=== PATIENT | male | born 1950 | race Caucasian/White ===

== ENCOUNTER 2018-12-11 10:57 | Emergency (ER) | payer MEDICARE ==
[~2018-12-11] VITALS: Ht 190.5 cm; Wt 142.0 kg
[~2018-12-11 10:57] MED LIST: ASCO500 PO; ASPI81CH PO; ASPI81EC PO; Bactrim Ds Tab1 EACH PO; CHOL10002 PO; CLOP75 PO; DABI150C PO; DOCU100 PO; ETOD400 PO; FENO145 PO; FURO40 PO; Ferrous Sulfat325 M2 PO; GABA300 PO; GLIP10 PO; Hair, Skin & N1 EACH PO; INS70/30PN; INSDET100 SC; INSULANPEN; JARDIANCE25 MG; METF500 PO; METO50 PO; Micro-K10 MEQ PO; NAPR250 PO; OMEPRAZOLE MAGN20 MG PO; OXYC5 PO; POTCHL20ER PO; Roxicodone5 MG PO; SERT100 PO; SIMV80 PO; TAMS.4ER PO; TRAM50 PO
[2018-12-11] MEDS ORDERED: CYCL10 PO (11:21)
[2018-12-11] MEDS ORDERED: TRULICITY1.5 MG/0.5 SC (11:22)
[2018-12-11 11:23] LABS: Source, Urine Clean Catch
[2018-12-11] MEDS ORDERED: FISH OIL 1,001000 MG PO (11:23)
[2018-12-11 11:28] LABS: BASOPHILS ABSOLUTE AUTO 0.05 K/mm3 (0.00-0.23); BASOPHILS PERCENT AUTO 1 % (0-2); EOSINOPHILS ABSOLUTE AUTO 0.13 K/mm3 (0.00-0.68); EOSINOPHILS PERCENT AUTO 2 % (0-6); Hematocrit 36.5 % (37.0-53.0); IMMATURE GRAN ABSOLUTE AUTO 0.02 K/mm3 (0.00-0.10); IMMATURE GRAN PERCENT AUTO 0 % (0-1); LYMPHOCYTES ABSOLUTE AUTO 1.92 K/mm3 (0.84-5.20); LYMPHOCYTES PERCENT AUTO 25 % (21-46); MONOCYTES PERCENT AUTO 7 % (4-13); Mean Corpuscular HGB 31.8 pg (26.0-34.0); Mean Corpuscular HGB Conc 32.9 g/dL (31.5-36.5); Mean Corpuscular Volume 97 fL (80-100); NEUTROPHILS ABSOLUTE AUTO 5.06 K/mm3 (1.96-9.15); NEUTROPHILS PERCENT AUTO 66 % (41-73); Platelet Count 160 K/mm3 (150-400); RDW Coefficient Variation 13.2 % (11.7-14.2); RDW Standard Deviation 46.4 fL (35.1-46.3); Red Blood Cell Count 3.77 M/mm3 (4.30-5.90); White Blood Cell Count 7.68 K/mm3 (4.00-11.30)
[2018-12-11 11:31] LABS: Bilirubin, Urine Neg (Neg); Blood, Urine Neg (Neg); Glucose Qualitative, Urine Neg (Neg); Ketones, Urine Neg (Neg); Leukocyte Esterase, Urine Neg (Neg); Nitrite, Urine Neg (Neg); Protein, Urine 3+ (Neg); Specific Gravity, Urine 1.015 (1.003-1.022); Urobilinogen, Urine NORM (Normal)
[2018-12-11] MEDS ORDERED: HUMULIN R500 UNIT/1 SC ×3 (11:33→11:35)
[2018-12-11] MEDS ORDERED: LISI5 PO (11:38)
[2018-12-11 11:39] LABS: Appearance, Urine Clear (Clear); Bacteria Not Seen /hpf; Color, Urine Yellow (P-Yellow); Mucus Light (0-Heavy); Red Blood Cells, Urine Not Seen /hpf (0-2); Squamous Epithelial Cells Rare /hpf (Few); White Blood Cells, Urine Not Seen /hpf (0-5)
[2018-12-11] MEDS ORDERED: GABA300 PO ×2 (11:43→11:44)
[2018-12-11] MEDS ORDERED: OXYC5 PO (11:46)
[2018-12-11] MEDS ORDERED: ASCO500 PO (11:47)
[2018-12-11] MEDS ORDERED: Zantac150 MG PO (11:47)
[2018-12-11 11:48] LABS: Alanine Aminotransfer (ALT/SGP 52 U/L (12-78); Albumin, Blood 3.5 g/dL (3.4-5.0); Albumin/Globulin Ratio 0.9 (0.8-1.8); Alk Phos 68 U/L (50-136); Anion Gap 8 mmol/L (6-16); Aspartate Aminotrans (AST/SGOT 42 U/L (12-37); Bilirubin, Total 0.4 mg/dL (0.1-1.0); Blood Urea Nitrogen 23 mg/dL (8-24); Bun/Creatinine Ratio 27.1 (12.0-20.0); CO2, Blood 24 mmol/L (21-32); Calcium, Blood 8.6 mg/dL (8.5-10.1); Chloride, Blood 107 mmol/L (98-108); Creatinine, Blood 0.85 mg/dL (0.60-1.20); Globulin, Blood 3.8 g/dL (2.2-4.0); Glomerular Filtration Rate >60 (60-); Glucose, Blood 171 mg/dL (70-99); Potassium, Blood 3.9 mmol/L (3.5-5.5); Sodium, Blood 139 mmol/L (136-145); Total Protein, Blood 7.3 g/dL (6.4-8.2); Troponin I 0.062 ng/mL (0.000-0.040)
[2018-12-11] MEDS ORDERED: MAGOXI400 PO (14:40)
== END 2018-12-11 14:58 | disposition home or self-care (01) ==
LOC: ER 10:57
PROVIDERS: Emergency Medicine
DX: R55 Syncope and collapse (principal); E83.42 Hypomagnesemia; R79.89 Other specified abnormal findings of blood chemistry; Z79.899 Other long term (current) drug therapy; Z79.82 Long term (current) use of aspirin; Z79.4 Long term (current) use of insulin; E11.9 Type 2 diabetes mellitus without complications; I10 Essential (primary) hypertension; I25.2 Old myocardial infarction; Z86.73 Personal history of transient ischemic attack (TIA), and cerebral infarction without residual deficits
CPT/HCPCS: 71046; 80053; 81001; 83735; 84484; 85025; 93005; 93010

== ENCOUNTER 2019-06-23 19:04 | Observation (INO) | payer MEDICARE ==
[~2019-06-23] VITALS: Ht 190.5 cm; Wt 141.1 kg
[~2019-06-23 19:04] MED LIST changes: -ASPI81CH PO; +Aspirin EC81 MG PO; -CHOL10002 PO; +CYCL10 PO; +FISH OIL 1,001000 MG PO; +HUMULIN R500 UNIT/1 SC; +LISI5 PO; +MAGOXI400 PO; +Neurontin300 MG PO; +TRULICITY1.5 MG/0.5 SC; +VITAMIN D-32000 UNIT PO; +Zantac150 MG PO
[2019-06-23 19:45] LABS: BASOPHILS ABSOLUTE AUTO 0.05 K/mm3 (0.00-0.23); BASOPHILS PERCENT AUTO 1 % (0-2); EOSINOPHILS ABSOLUTE AUTO 0.13 K/mm3 (0.00-0.68); EOSINOPHILS PERCENT AUTO 2 % (0-6); Hematocrit 39.8 % (37.0-53.0); IMMATURE GRAN ABSOLUTE AUTO 0.03 K/mm3 (0.00-0.10); IMMATURE GRAN PERCENT AUTO 0 % (0-1); LYMPHOCYTES ABSOLUTE AUTO 2.74 K/mm3 (0.84-5.20); LYMPHOCYTES PERCENT AUTO 35 % (21-46); MONOCYTES ABSOLUTE AUTO 0.48 K/mm3 (0.16-1.47); MONOCYTES PERCENT AUTO 6 % (4-13); Mean Corpuscular HGB 31.5 pg (26.0-34.0); Mean Corpuscular HGB Conc 32.7 g/dL (31.5-36.5); Mean Corpuscular Volume 96 fL (80-100); NEUTROPHILS ABSOLUTE AUTO 4.46 K/mm3 (1.96-9.15); NEUTROPHILS PERCENT AUTO 57 % (41-73); Platelet Count 207 K/mm3 (150-400); RDW Coefficient Variation 12.7 % (11.7-14.2); RDW Standard Deviation 45.2 fL (35.1-46.3); Red Blood Cell Count 4.13 M/mm3 (4.30-5.90); White Blood Cell Count 7.89 K/mm3 (4.00-11.30)
[2019-06-23 20:01] LABS: Alanine Aminotransfer (ALT/SGP 34 U/L (12-78); Albumin, Blood 3.7 g/dL (3.4-5.0); Albumin/Globulin Ratio 0.8 (0.8-1.8); Alk Phos 85 U/L (50-136); Anion Gap 8 mmol/L (6-16); Aspartate Aminotrans (AST/SGOT 27 U/L (12-37); Bilirubin, Total 0.3 mg/dL (0.1-1.0); Blood Urea Nitrogen 23 mg/dL (8-24); Bun/Creatinine Ratio 18.5 (12.0-20.0); CO2, Blood 25 mmol/L (21-32); Chloride, Blood 107 mmol/L (98-108); Creatinine, Blood 1.24 mg/dL (0.60-1.20); Globulin, Blood 4.5 g/dL (2.2-4.0); Glomerular Filtration Rate >60 (60-); Glucose, Blood 150 mg/dL (70-99); Potassium, Blood 3.8 mmol/L (3.5-5.5); Sodium, Blood 140 mmol/L (136-145); Total Protein, Blood 8.2 g/dL (6.4-8.2); Troponin I 0.055 ng/mL (0.000-0.040)
[2019-06-23] MEDS ORDERED: Fish Oil Conc1000 MG PO (20:35)
[2019-06-23] MEDS ORDERED: METO25ER PO (20:35)
[2019-06-23] MEDS ORDERED: SERT100 PO (20:36)
[2019-06-23] MEDS ORDERED: POTCHL20ER PO (20:36)
[2019-06-24 04:43] LABS: BASOPHILS ABSOLUTE AUTO 0.05 K/mm3 (0.00-0.23); BASOPHILS PERCENT AUTO 0 % (0-2); EOSINOPHILS ABSOLUTE AUTO 0.16 K/mm3 (0.00-0.68); EOSINOPHILS PERCENT AUTO 1 % (0-6); Hematocrit 34.7 % (37.0-53.0); Hemoglobin 11.5 g/dL (13.5-17.5); IMMATURE GRAN ABSOLUTE AUTO 0.03 K/mm3 (0.00-0.10); IMMATURE GRAN PERCENT AUTO 0 % (0-1); LYMPHOCYTES ABSOLUTE AUTO 3.41 K/mm3 (0.84-5.20); LYMPHOCYTES PERCENT AUTO 30 % (21-46); MONOCYTES ABSOLUTE AUTO 0.68 K/mm3 (0.16-1.47); MONOCYTES PERCENT AUTO 6 % (4-13); Mean Corpuscular HGB 31.1 pg (26.0-34.0); Mean Corpuscular HGB Conc 33.1 g/dL (31.5-36.5); Mean Corpuscular Volume 94 fL (80-100); Mean Platelet Volume 9.8 fL (9.1-12.4); NEUTROPHILS ABSOLUTE AUTO 6.91 K/mm3 (1.96-9.15); NEUTROPHILS PERCENT AUTO 62 % (41-73); Platelet Count 188 K/mm3 (150-400); RDW Coefficient Variation 12.9 % (11.7-14.2); RDW Standard Deviation 44.2 fL (35.1-46.3); White Blood Cell Count 11.24 K/mm3 (4.00-11.30)
[2019-06-24 05:07] LABS: Calcium, Blood 8.6 mg/dL (8.5-10.1); Creatinine, Blood 1.53 mg/dL (0.60-1.20); Potassium, Blood 3.5 mmol/L (3.5-5.5); Troponin I 0.053 ng/mL (0.000-0.040)
--- NOTE | 2019-06-24 06:35 | NUR ---
SHIFT SUMMARY: Pt admitted to medical floor at 2155. A/O x 4. R ankle fx stabilized in splint. Cap refill 4sec to BLE. Able to wiggle toes. Ankle elevated on pillow after pt reporting RLE bandages feel tight. R ankle pain and L knee pain was managed upon admit but progressively worsened. One time dose of dilauded administered as ordered. Pt responded very well and fell asleep shortly after. CPAP on. Tele on. Call button explained and placed within reach. Communicating needs. Remained non-wt bearing all night. Call placed for ortho consult as directed by admitting physician.
--- NOTE | 2019-06-24 16:57 | NUR ---
SHIFT SUMMARY PT AXO, PLEASANT AND COOPERATIVE WITH CARE. DENIES CHEST PAIN THIS SHIFT. RUNNING A-FIB AT 75 PER DIE SETTER. PT DOES COMPLAIN OF RLE AND LEFT KNEE PAIN. MEDICATED PER EMAR. PT SLEEPING INTERMITTENTLY THROUGHOUT THE DAY. DR. JONES CONSULTED, REDUCED AND PLACED SPLINT, SEE NOTE. X-RAY ON RLE AND LEFT KNEE COMPLETED, SEE IMAGING. VSS. BED IN LOW POSITION, CALL LIGHT WITHIN REACH. PT'S INSULIN FROM HOME, U-500, VERIFIED FROM PHARMACY AND ORDERED AC PER DR PRICE AND PT'S HOME DOSAGES.
[2019-06-25 05:02] LABS: BASOPHILS ABSOLUTE AUTO 0.02 K/mm3 (0.00-0.23); BASOPHILS PERCENT AUTO 0 % (0-2); EOSINOPHILS ABSOLUTE AUTO 0.11 K/mm3 (0.00-0.68); EOSINOPHILS PERCENT AUTO 1 % (0-6); Hemoglobin 11.2 g/dL (13.5-17.5); IMMATURE GRAN ABSOLUTE AUTO 0.02 K/mm3 (0.00-0.10); IMMATURE GRAN PERCENT AUTO 0 % (0-1); LYMPHOCYTES ABSOLUTE AUTO 2.06 K/mm3 (0.84-5.20); LYMPHOCYTES PERCENT AUTO 26 % (21-46); MONOCYTES ABSOLUTE AUTO 0.64 K/mm3 (0.16-1.47); MONOCYTES PERCENT AUTO 8 % (4-13); Mean Corpuscular HGB 31.3 pg (26.0-34.0); Mean Corpuscular HGB Conc 32.9 g/dL (31.5-36.5); Mean Corpuscular Volume 95 fL (80-100); Mean Platelet Volume 10.1 fL (9.1-12.4); NEUTROPHILS ABSOLUTE AUTO 5.05 K/mm3 (1.96-9.15); NEUTROPHILS PERCENT AUTO 64 % (41-73); Platelet Count 166 K/mm3 (150-400); RDW Coefficient Variation 12.7 % (11.7-14.2); RDW Standard Deviation 43.7 fL (35.1-46.3); Red Blood Cell Count 3.58 M/mm3 (4.30-5.90)
[2019-06-25 05:42] LABS: Anion Gap 8 mmol/L (6-16); Blood Urea Nitrogen 31 mg/dL (8-24); Bun/Creatinine Ratio 25.2 (12.0-20.0); CO2, Blood 25 mmol/L (21-32); Calcium, Blood 8.8 mg/dL (8.5-10.1); Chloride, Blood 104 mmol/L (98-108); Creatinine, Blood 1.23 mg/dL (0.60-1.20); Glomerular Filtration Rate >60 (60-); Glucose, Blood 65 mg/dL (70-99); Potassium, Blood 3.6 mmol/L (3.5-5.5); Sodium, Blood 137 mmol/L (136-145)
--- NOTE | 2019-06-25 06:08 | NUR ---
SHIFT SUMMARY: BP 94/51, rechecked 119/54. 02 sats 94-96% on RA. CPAP on all night. Lethargic tonight- wakes easily to verbal stimuli but falls asleep quickly. CBG 67, 69- sandwich and soda given- rechecked 76. Glucose 65 at 0408. Awake and taking snacks. Will report lower CBGs to day shift. No insulin given this AM d/t breakfast not served until 0800. RLE and L knee pain well managed. Denies pain through the night except pt did accept topical analgesic creame to L knee when offered. RLE elevated with pillows. Cap refill 4 sec bilaterally to LE. Immobilizer cast on RLE. Coarse sounding cough, nonproductive tonight. RUL and RML with coarse inspiratory rhonchi, not cleared with forced cough. Voiding using urinal. NWB RLE. Pt remained in bed all night. Call button in reach.
--- NOTE | 2019-06-25 17:30 | NUR ---
SHIFT SUMMARY: PT IS A/O X 4 WITH C/O PAIN X [address] JONES REPLACED HIS SPLINT. PT HAS REMAINED NWB TO RLE. HE WAS ASSISTED X 2 WITH GAIT BELT AND WALKER TO THE [facility] TO ATTEMPT TO HAVE A BM BUT WAS UNSUCCESSFUL AND WAS ASSISTED BACK TO BED. PT CBGS HAVE BEEN MANAGED WITH HOME INSULIN REGIMEN AND HE HAS BEEN ASYMPTOMATIC OF HYPER/HYPO GLYCEMIA. BLE ARE + FOR CIRCULATION AND MOVEMENT BUT PT REPORTS HE HAS NE FEELING IN HIS FEET R/T DIABETIC NEUROPATHY. RLE IS ELEVATED ON A PILLOW. PT IS PLEASANT AND COOPERATIVE WITH HIS CARE AND MAKES HIS NEEDS KNOWN.
--- NOTE | 2019-06-25 19:44 | NUR ---
Wet bed PT. bed was found wet at 1944 on 06/25/19. Was moving PT around for a bedpan, and found the sheets and bed were soaked with urine.
--- NOTE | 2019-06-26 04:41 | NUR ---
SHIFT SUMMARY PT MUCH MORE ALERT THIS EVENING. SLEPT OFF AND ON THROUGHOUT THE NIGHT. WORE CPAP WHEN SLEEPING, OTHERWISE PT IS ON RA. PT CONTINUES TO HAVE PAIN IN R ANKLE AND LEFT KNEE. MEDICATED X 1 W/ 10 MG ROXICODONE. SOFT CAST REMAINED INTACT TO RLE. CBG 199 AT HS CHECK, COVERED W/ SS NOVOLOG 4 UNITS. PT USES URINAL INDPENDENTLY BUT OCCASIONALLY SPILLS IT REQUIRING BED CHECKS. TELEMETRY ON READING AFIB IN THE 80'S. NO COMPLAINTS OF CHEST PAIN OR SOB. PLAN FOR PT TO HAVE STRESS TEST TODAY. PT HAS HAD NO CAFFEINE. VITAL SIGNS HAVE BEEN STABLE. OTHERWISE NO ACUTE CHANGES. WILL CONTINUE TO MONITOR.
[2019-06-26 05:51] LABS: BASOPHILS ABSOLUTE AUTO 0.02 K/mm3 (0.00-0.23); BASOPHILS PERCENT AUTO 0 % (0-2); EOSINOPHILS ABSOLUTE AUTO 0.11 K/mm3 (0.00-0.68); EOSINOPHILS PERCENT AUTO 1 % (0-6); Hematocrit 31.9 % (37.0-53.0); Hemoglobin 10.4 g/dL (13.5-17.5); IMMATURE GRAN ABSOLUTE AUTO 0.04 K/mm3 (0.00-0.10); IMMATURE GRAN PERCENT AUTO 0 % (0-1); LYMPHOCYTES ABSOLUTE AUTO 2.25 K/mm3 (0.84-5.20); LYMPHOCYTES PERCENT AUTO 25 % (21-46); MONOCYTES ABSOLUTE AUTO 0.64 K/mm3 (0.16-1.47); MONOCYTES PERCENT AUTO 7 % (4-13); Mean Corpuscular HGB 30.7 pg (26.0-34.0); Mean Corpuscular HGB Conc 32.6 g/dL (31.5-36.5); Mean Corpuscular Volume 94 fL (80-100); Mean Platelet Volume 10.3 fL (9.1-12.4); NEUTROPHILS ABSOLUTE AUTO 6.03 K/mm3 (1.96-9.15); NEUTROPHILS PERCENT AUTO 66 % (41-73); Platelet Count 147 K/mm3 (150-400); RDW Coefficient Variation 12.9 % (11.7-14.2); RDW Standard Deviation 44.5 fL (35.1-46.3); Red Blood Cell Count 3.39 M/mm3 (4.30-5.90); White Blood Cell Count 9.09 K/mm3 (4.00-11.30)
--- NOTE | 2019-06-26 13:36 | NUR ---
PT REPORTS NEW ONSET PAIN IN HIS RIGHT HEEL AND CALF. PT RATES PAIN 8/10. DR JONES WAS NOTIFIED VIA OFFICE MESSAGE AND THIS NURSE IS AWAITING RETURN CALL/ORDERS.
--- NOTE | 2019-06-26 13:41 | NUR ---
DR JONES RETURNED CALL AND STATED THAT HE WILL ROUND ON PT AFTER CLINIC TODAY.
--- NOTE | 2019-06-26 16:47 | NUR ---
SHIFT SUMMARY: PT IS A/O X 4 AT BASELINE WITH C/O PAIN X 1 TO RLE. PT REPORTS THAT THE PAIN WAS NEW ONSET AND DR JONES WAS NOTIFIED. PAIN MED WAS GIVEN ORDERED AND PT REPORTS IT WAS SLIGHTLY EFFECTIVE. PT COMPLETED THE FIRST PART OF HIS STRESS TEST TODAY. LUNG SOUNDS WERE COARSE AND REPORTED THIS TO RT WHO STATED THEY WOULD COME SEE THE PT AND PROVIDE AND FLUTTER VALVE. PT HAS NO S/S OF RESP DISTRESS. EDUCATION WAS COMPLETED WITH PT ON COUGHING AND DEEP BREATHING. HARD SPLINT REMAINS INTACT TO RLE AND TOES ARE + FOR CIRCULATION AND MOVEMENT BUT PT HAS CHRONIC NEUROPATHY IN BLE. PT CONTONUES ON HOME INSULIN REGIMEN AND IS ASYMPTOMATIC OF HYPER/HYPO GLYCEMIA. PT IS RESTING IN BED AND IS ABLE TO MAKE HIS NEEDS KNOWN.
--- NOTE | 2019-06-27 00:20 | NUR ---
06/26/191999 GLUCOSE 76, PT ATE TOPIOCA PUDDING X 2 CONTAINERS. 235 GLUCOSE 58, ATE PEANUT BUTTER CONTAINERS X 2 AND DRANK ONE 120ML APPLE JUICE, PLAN RECHECK GLUCOSE AT 0200.
--- NOTE | 2019-06-27 04:33 | NUR ---
SHIFT SUMMARY: PT RESTED COMFORTABLY ALL SHIFT, C/O RIGHT ANKLE PAIN ONCE WITH OXYCODONE 5MG PO GIVEN WITH RELIEF FELT, TELEMETRY REFLECTS A/FIB WITH HEART RATE 80, PTS BLOOD GLUCOSE HAVE BEEN VERY LOW ALL SHIFT WITH READINGS AT THE FOLLOWING TIMES: 2100 76 SNACK EATEN 0001 56 SNACK EATEN [address] TERAN NOTIFIED OF LOW SUGARS WITH ORDERS START D5W AT 125ML/HR AND TO DISCONTINUE ALL INSULIN TILL REEVALUATED IN AM BY DR PRICE. PT ALERT AND ORIENTED X 4, RLE ELEVATED 3 PILLOWS, BED LOW POSITION, CALL LIGHT AT SIDE.
[2019-06-27 05:35] LABS: BASOPHILS ABSOLUTE AUTO 0.02 K/mm3 (0.00-0.23); BASOPHILS PERCENT AUTO 0 % (0-2); EOSINOPHILS ABSOLUTE AUTO 0.11 K/mm3 (0.00-0.68); EOSINOPHILS PERCENT AUTO 1 % (0-6); Hematocrit 32.3 % (37.0-53.0); Hemoglobin 10.7 g/dL (13.5-17.5); IMMATURE GRAN ABSOLUTE AUTO 0.04 K/mm3 (0.00-0.10); IMMATURE GRAN PERCENT AUTO 0 % (0-1); LYMPHOCYTES ABSOLUTE AUTO 1.43 K/mm3 (0.84-5.20); LYMPHOCYTES PERCENT AUTO 16 % (21-46); MONOCYTES ABSOLUTE AUTO 0.76 K/mm3 (0.16-1.47); MONOCYTES PERCENT AUTO 8 % (4-13); Mean Corpuscular HGB Conc 33.1 g/dL (31.5-36.5); Mean Corpuscular Volume 94 fL (80-100); Mean Platelet Volume 10.3 fL (9.1-12.4); NEUTROPHILS ABSOLUTE AUTO 6.87 K/mm3 (1.96-9.15); NEUTROPHILS PERCENT AUTO 75 % (41-73); Platelet Count 177 K/mm3 (150-400); RDW Coefficient Variation 12.9 % (11.7-14.2); Red Blood Cell Count 3.45 M/mm3 (4.30-5.90); White Blood Cell Count 9.23 K/mm3 (4.00-11.30)
[2019-06-27 05:54] LABS: Anion Gap 6 mmol/L (6-16); Blood Urea Nitrogen 30 mg/dL (8-24); Bun/Creatinine Ratio 29.7 (12.0-20.0); CO2, Blood 26 mmol/L (21-32); Calcium, Blood 9.3 mg/dL (8.5-10.1); Chloride, Blood 104 mmol/L (98-108); Creatinine, Blood 1.01 mg/dL (0.60-1.20); Glomerular Filtration Rate >60 (60-); Glucose, Blood 92 mg/dL (70-99); Potassium, Blood 4.2 mmol/L (3.5-5.5); Sodium, Blood 136 mmol/L (136-145)
--- NOTE | 2019-06-27 12:18 | NUR ---
PACEMAKER CHECKED PER DR GLASS, APPEARS WORKING NORMALLY, REPORT ROUTED IN OPTIM[place] TO DR GLASS.
--- NOTE | 2019-06-27 18:59 | NUR ---
SHIFT SUMMARY PT AXO, PLEASANT AND COOPERATIVE WITH CARE. PT'S HOME INSULIN RESUMED PER DR PRICE AT A REDUCED DOSAGE, SEE MAR. PT STATED HIS PAIN WAS WELL CONTROLLED AND DID NOT NEED COVERAGE THIS SHIFT. PT UP TO BSC X2. EVALUATED BY PHYSICAL AND OCCUPATIONAL THERAPY, SEE NOTE.IV PATENT AND SALINE LOCKED. 2ND PORTION OF STRESS TEST COMPLETED THIS SHIFT, SEE IMAGING. PT DENIES CHEST PAIN, SOB AND NV. RUNNING A-FIB IN 80'S PER NEUROSURGERY SPINE PHYSICIAN. BED IN LOW POSITION, CALL LIGHT WITHIN REACH.
--- NOTE | 2019-06-28 06:38 | NUR ---
Shift summary: Patient is A&Ox4, VS are stable. Patient is NWB on RLE. able to stand and pivot to BCS with assist of 1 and walker for BM. Patient does not sleep restfully, talking in his sleep and yelling out. Patient reports having flashbacks durning sleep. requested oxycodone x1 for Right ankle pain. Med was given with good effect.
[2019-06-28] MEDS ORDERED: FERSU300 PO (12:09)
[2019-06-28] MEDS ORDERED: ACET325 PO (12:09)
[2019-06-28] MEDS ORDERED: ONDA4ODT PO (12:10)
[2019-06-28] MEDS ORDERED: FISH OIL 1,001000 MG PO (12:10)
[2019-06-28] MEDS ORDERED: Aspercreme 1035.4 GM TOP (12:11)
[2019-06-28] MEDS ORDERED: ROXICODONE5 MG PO (12:11)
[2019-06-28] MEDS ORDERED: MELA3 PO (12:12)
--- NOTE | 2019-06-28 15:50 | NUR ---
PT DISCHARGED FROM UNIT TO [facility]. PT LEFT VIA WHEELCHAIR, [facility] TO TRANSPORT. REPORT CALLED TO [facility].
== END 2019-06-28 15:47 ==
LOC: ER 19:04 → MEDS 21:53 → ER 21:53 → MEDS 21:53
PROVIDERS: Emergency Medicine; Family Medicine; ADMIT Nurse Practitioner Acute Care
PROC: 0QSJXZZ Reposition Right Fibula, External Approach (ICD-10-PCS; principal; 2019-06-24)
PROC: 0QSGXZZ Reposition Right Tibia, External Approach (ICD-10-PCS; principal; 2019-06-24)
DX: S82.851A Displaced trimalleolar fracture of right lower leg, initial encounter for closed fracture (principal); R07.9 Chest pain, unspecified; M54.40 Lumbago with sciatica, unspecified side; G89.29 Other chronic pain; E11.40 Type 2 diabetes mellitus with diabetic neuropathy, unspecified; M25.569 Pain in unspecified knee; I48.20 Chronic atrial fibrillation, unspecified; I25.10 Atherosclerotic heart disease of native coronary artery without angina pectoris; I11.0 Hypertensive heart disease with heart failure; I50.32 Chronic diastolic (congestive) heart failure; E66.9 Obesity, unspecified; Z87.891 Personal history of nicotine dependence; Z79.02 Long term (current) use of antithrombotics/antiplatelets; Z79.4 Long term (current) use of insulin; Z86.73 Personal history of transient ischemic attack (TIA), and cerebral infarction without residual deficits; Z95.5 Presence of coronary angioplasty implant and graft; Z79.82 Long term (current) use of aspirin; Z79.899 Other long term (current) drug therapy; W18.30XA Fall on same level, unspecified, initial encounter
CPT/HCPCS: 27818; 36415; 71045; 73560-LT; 73600; 73610; 78452; 80048; 80053; 82947; 83880; 84443; 84484; 85025; 93005; 93010; 93017; 93280; 94762; 96372; 96374-59; 96376-59; 97110; 97162; 97530; 99285-25; A9500; C8929; G0378; J0706; J1170; J1644; J1815; J2785; J3010; J7070; Q9957

== ENCOUNTER 2019-07-04 14:17 | Inpatient (IN) | payer MEDICARE ==
[~2019-07-04] VITALS: Ht 190.5 cm; Wt 135.9 kg
[~2019-07-04 14:17] MED LIST changes: +ACET325 PO; +Aspercreme 1035.4 GM TOP; +FERSU300 PO; +Fish Oil Conc1000 MG PO; +MELA3 PO; +METO25ER PO; +ONDA4ODT PO; +ROXICODONE5 MG PO
[2019-07-04 15:05] LABS: BASOPHILS ABSOLUTE AUTO 0.03 K/mm3 (0.00-0.23); BASOPHILS PERCENT AUTO 0 % (0-2); EOSINOPHILS ABSOLUTE AUTO 0.13 K/mm3 (0.00-0.68); EOSINOPHILS PERCENT AUTO 1 % (0-6); Hematocrit 31.8 % (37.0-53.0); Hemoglobin 10.6 g/dL (13.5-17.5); IMMATURE GRAN ABSOLUTE AUTO 0.05 K/mm3 (0.00-0.10); IMMATURE GRAN PERCENT AUTO 0 % (0-1); LYMPHOCYTES ABSOLUTE AUTO 1.25 K/mm3 (0.84-5.20); LYMPHOCYTES PERCENT AUTO 10 % (21-46); MONOCYTES ABSOLUTE AUTO 0.72 K/mm3 (0.16-1.47); MONOCYTES PERCENT AUTO 6 % (4-13); Mean Corpuscular HGB 31.8 pg (26.0-34.0); Mean Corpuscular HGB Conc 33.3 g/dL (31.5-36.5); Mean Corpuscular Volume 96 fL (80-100); Mean Platelet Volume 9.7 fL (9.1-12.4); NEUTROPHILS ABSOLUTE AUTO 9.81 K/mm3 (1.96-9.15); NEUTROPHILS PERCENT AUTO 82 % (41-73); Platelet Count 314 K/mm3 (150-400); RDW Coefficient Variation 12.5 % (11.7-14.2); RDW Standard Deviation 43.5 fL (35.1-46.3); Red Blood Cell Count 3.33 M/mm3 (4.30-5.90); White Blood Cell Count 11.99 K/mm3 (4.00-11.30)
[2019-07-04 15:34] LABS: Alanine Aminotransfer (ALT/SGP 35 U/L (12-78); Albumin, Blood 3.2 g/dL (3.4-5.0); Albumin/Globulin Ratio 0.6 (0.8-1.8); Alk Phos 117 U/L (50-136); Anion Gap 9 mmol/L (6-16); Aspartate Aminotrans (AST/SGOT 31 U/L (12-37); Bilirubin, Total 0.6 mg/dL (0.1-1.0); Blood Urea Nitrogen 48 mg/dL (8-24); CO2, Blood 22 mmol/L (21-32); Calcium, Blood 9.2 mg/dL (8.5-10.1); Chloride, Blood 104 mmol/L (98-108); Creatinine, Blood 1.23 mg/dL (0.60-1.20); Glomerular Filtration Rate >60 (60-); Glucose, Blood 157 mg/dL (70-99); Potassium, Blood 4.4 mmol/L (3.5-5.5); Sodium, Blood 135 mmol/L (136-145); Total Protein, Blood 8.2 g/dL (6.4-8.2)
--- NOTE | 2019-07-04 20:38 | NUR ---
PT PICKED UP BY ALISHA MCMAHAN FROM THE OR.
--- NOTE | 2019-07-04 21:08 | NUR ---
07/04/192107 Christine Chang PT ON SCHEDULED ANTIBIOTICS
--- NOTE | 2019-07-04 22:42 | NUR ---
PT ARRIVES TO ROOM ICU 14 UNDER ICU -PACU STATUS. PT ON NONREBREATHER MASK AND SUBSEQUENTLY CHANGESD TO SIMPLE MASK. PT OPENS EYES, AND HAS STRONG COUGH EFFORT. REPORT RECEIVED.
--- NOTE | 2019-07-05 00:10 | NUR ---
REPORT CALLED TO RN FOR ROOM 208. REPORT GIVEN IN SBAR FASHION. ALLOWED FOR QUESTIONS. PT'S POST OP SCORING > 10. PT REMAINS SOMEWHAT CONFUSED BUT IS REDIRECTABLE. HAVE KEPT RIGHT LOWER EXTREMITY ELEVATED ON PILLOWS. PT SOMEWHAT FORGETFUL OF POST OP RESTRICTIONS. PT TRANSFERRED TO ROOM 208 IN STABLE CONDTION. PROVIDED AGAIN OPPORTUNITY FOR QUESTIONS FROM ASSUMING RN.
[2019-07-05 04:22] LABS: BASOPHILS ABSOLUTE AUTO 0.03 K/mm3 (0.00-0.23); BASOPHILS PERCENT AUTO 0 % (0-2); EOSINOPHILS PERCENT AUTO 1 % (0-6); Hematocrit 30.5 % (37.0-53.0); Hemoglobin 9.8 g/dL (13.5-17.5); IMMATURE GRAN ABSOLUTE AUTO 0.03 K/mm3 (0.00-0.10); IMMATURE GRAN PERCENT AUTO 0 % (0-1); LYMPHOCYTES ABSOLUTE AUTO 1.79 K/mm3 (0.84-5.20); LYMPHOCYTES PERCENT AUTO 19 % (21-46); MONOCYTES ABSOLUTE AUTO 0.58 K/mm3 (0.16-1.47); MONOCYTES PERCENT AUTO 6 % (4-13); Mean Corpuscular HGB 31.1 pg (26.0-34.0); Mean Corpuscular HGB Conc 32.1 g/dL (31.5-36.5); Mean Corpuscular Volume 97 fL (80-100); Mean Platelet Volume 9.5 fL (9.1-12.4); NEUTROPHILS PERCENT AUTO 73 % (41-73); Platelet Count 251 K/mm3 (150-400); RDW Coefficient Variation 12.6 % (11.7-14.2); RDW Standard Deviation 44.9 fL (35.1-46.3); Red Blood Cell Count 3.15 M/mm3 (4.30-5.90); White Blood Cell Count 9.43 K/mm3 (4.00-11.30)
[2019-07-05 04:41] LABS: Alanine Aminotransfer (ALT/SGP 31 U/L (12-78); Albumin, Blood 2.7 g/dL (3.4-5.0); Albumin/Globulin Ratio 0.6 (0.8-1.8); Alk Phos 108 U/L (50-136); Anion Gap 7 mmol/L (6-16); Aspartate Aminotrans (AST/SGOT 23 U/L (12-37); Bilirubin, Total 0.4 mg/dL (0.1-1.0); Blood Urea Nitrogen 46 mg/dL (8-24); Bun/Creatinine Ratio 42.6 (12.0-20.0); CO2, Blood 23 mmol/L (21-32); Calcium, Blood 8.7 mg/dL (8.5-10.1); Chloride, Blood 109 mmol/L (98-108); Creatinine, Blood 1.08 mg/dL (0.60-1.20); Globulin, Blood 4.9 g/dL (2.2-4.0); Glomerular Filtration Rate >60 (60-); Glucose, Blood 129 mg/dL (70-99); Magnesium, Blood 2.3 mg/dL (1.6-2.4); Potassium, Blood 4.1 mmol/L (3.5-5.5); Sodium, Blood 139 mmol/L (136-145); Total Protein, Blood 7.6 g/dL (6.4-8.2)
--- NOTE | 2019-07-05 06:21 | NUR ---
SHIFT SUMMARY: ALONZO UNDERWENT SURGICAL REPAIR OF HIS RIGHT ANKLE LAST NIGHT. HE HAS AN EXTERNAL FIXATOR AND WOUND VAC IN PLACE. HE STATES THAT HE HAS A COUPLE OF "SORE SPOTS" ON HIS RIGHT ANKLE. HE HAS BEEN RESTING COMFORTABLY. VSS. HIS MENTATION HAS RETURNED TO BASELINE AFTER ALLOWING THE ANESTHESIA TO WEAR OFF. HE IS ABLE TO MAKE HIS NEEDS KNOWN. HIS SISTER BROUGHT IN HIS BIPAP FROM HOME WHICH IS AT THE BEDSIDE. SHE ALSO BROUGHT IN HIS TRULIA WHICH IS IN A GREEN BAG IN THE REFRIGERATOR IN THE [facility] ROOM. HE IS NON-WEIGHT BEARING ON THE RLE. DR. FITCH STATED THAT HE WILL CHANGE THE WOUND VAC ON WEDNESDAY AND REQUESTED THAT OTHER STAFF NOT CHANGE THE WOUND VAC. HE IS LYING IN BED WITH HIS CALL LIGHT IN REACH.
--- NOTE | 2019-07-05 12:52 | NUR ---
Patient is lying in bed and alert. Patient openly shares about his medical issues, his years of homelessness, his spirituality centered around the driver rule and his concern about what will happen going forward in regards to his living arrangements (patient has an apartment to live in and he does not want to lose it but he can not manage, going forward with out care). I explore sources of dignity and provide companionship and spiritual direction. Patient voiced appreciation for my visit.
--- NOTE | 2019-07-05 16:27 | NUR ---
SHIFT SUMMARY PT A&OX4, VSS, RA, BIPAP FOR BEDTIEM AND BIOX BEDSIDE, TELE AFIB BBB PVCS @ 86 BPM. CBGS CNI FOR B & L. POD1 R ANKLE EXT FIX AND WOUND VAC (ONLY TO BE CHANGED BY DR FITCH), ELEVATED, STRICT NWB (DR FITCH STRICTLY STATED "ABSOLUTELY NO STANDING ON RLE; PINS ON SIDES/BOTTOM OF FOOT." PAIN HAS BEEN MANAGED WELL WITH 25 MCGS FENT X2 AND 5 MG OXY X2. RADHA PO ADA DIET, DENIES N&V. VOIDING WELL USING URINAL INDEPENDENTLY. WILL REPORT TO NOC RN.
--- NOTE | 2019-07-06 00:32 | NUR ---
PT AWOKE CONFUSED. MARINE RADIO INSTALLER AND SERVICER FOUND PT SITTING W/BOTH LEGS OFF SIDE OF BED. PT REORIENTED AND ASSISTED BACK TO BED. DRESSING CDI, SX MAINTAINED TO WOUND VAC. RLE ELEVATED ON PILLOWS. BED ALARM ON. WILL CONT TO CLOSELY MONITOR AND REORIENT PRN.
--- NOTE | 2019-07-06 04:28 | NUR ---
SHIFT SUMMARY PATIENT HAS BEEN CONFUSED DURING THE NIGHT, WILL AWAKEN AND ASK WHERE HE IS. AFTER REORIENTATION PATIENT GOES BACK TO AA0X4. ATTEMPTED TO GET OUT OF BED ONE TIME DURING SHIFT. REORIENTED AND HAS BEEN IN BED SINCE. LEG HAS BEEN ELEVATED ON MULTIPLE PILLOWS. BANDAGE CDI. NO COMPLAINTS OF PAIN DURING SHIFT, DENIES NAUSEA. USING URINAL DURING SHIFT. CPAP ON THROUGH SHIFT. VSS.
--- NOTE | 2019-07-06 15:32 | NUR ---
DR. FITCH TO CHANGE WOUND VAC ON WEDNESDAY.
[2019-07-06 15:33] LABS: Vancomycin, Trough 15.2 ug/mL (5.0-10.0)
--- NOTE | 2019-07-06 16:21 | NUR ---
SHIFT SUMMARY PT A&OX4 WITH VS AT BASELINE T/O SHIFT. BLE ELEVATED ON PILLOWS. WESLEY WRAP IN PLACE ON RLE, C/D/I W/NO DRAINAGE NOTED. EXTERNAL HARDWARE AND WOUND VAC IN PLACE TO RIGHT ANKLE, PATENT AND DRAINING SS. IN TO SEE PT THIS MORNING, NWB ON RLE. PLAN TO CHANGE WOUND VAC DRESSING TOMORROW. DENIES PAIN. TOLERATING DIET, VOIDING, AND HAD 1 BM TODAY. ABX CURRENTLY RUNNING. CALL LIGHT WITHIN REACH AND DEMONSTRATES APPROPRIATE USE.
--- NOTE | 2019-07-06 18:10 | NUR ---
MARVA FROM PALLIATIVE CARE IN W/PT AT THIS TIME
--- NOTE | 2019-07-06 18:46 | NUR ---
Initial Visit: Palliative Care Consult for AD/POLST, Advanced Care Planning, and Symptom Management. Pt is A&O and reports 8/10 pain in his abdomen. He describes the pain as pressure. He reports his last BM was this AM but was a small one. Pt denies dyspnea. He reports experiencing anxiety due to his ankle and what the future holds for him if ankle does not heal. Engaged in therapeutic discussion regarding Advanced Care Planning. Pt reports living at home and at baseline is independent. He states having adequate support with his sister and niece. Discussed the possibility of needing assistance with care if ankle does not heal and amputation occurs. Pt reports his sister is currently in the process of checking with the [place] for qualifying for the [facility] satellite installation technician program. Suggested applying for Medicaid through [facility] as well. Educated Pt on the importance of complying with MD recommendations not only for his ankle but his other comorbidities. Educated on disease process and the importance of continued routine discussions with PCP in order to plan accordingly. Discussed AD/POLST and Pt [facility]. Ended visit to allow Pt to rest. Pt agreeable for continued therapeutic visits from palliative care. Spoke with bedside nurse Jadyn and discussed case. Pt was given TUMS during palliative care visit to aid with pain. Suggested the possibility of gas and to consider requesting order for simethicone. No other concerns reported at this time. Palliative Care will remain available.
--- NOTE | 2019-07-07 02:11 | NUR ---
XU ORDERED PRN TONIGHT PER PT REQUEST FOR SOMETHING TO TX "GAS" PT INTERMITTENTLY SLEEPING WITH NO FURTHER C/O GAS. PT WOKE WITH SUDDEN ONSET OF PROJECTILE EMESIS TOTAL 575 ML + COFFEE GROUND/BURGUNDY APPEARANCE.93 ML BLADDER SCAN. I CALLED DR LA AND NOTIFIED OF ABOVE.RECEIVED ORDERS.DR TO ROOM TO SEE PT.REVIEIWEING MEDS AND CURRENT ORDERS. PT ALSO DIAPHORETIC AT TIME DOCTOR HERE WITH LABS BEING DRAWN AT THIS TIME. NO CHANGES TO TELE REPORTED PER RADHA JAMES IN AFIB.CBG ON VEINOUS BLOOD RAN NOW WITH RESULT 215.PT NOT WANTING TO WEAR CPAP. PLACED N/C @2 L.IV FLUID RATE CHANGED FROM TKO TO 100 ML/HR
[2019-07-07 02:23] LABS: BASOPHILS ABSOLUTE AUTO 0.05 K/mm3 (0.00-0.23); BASOPHILS PERCENT AUTO 0 % (0-2); EOSINOPHILS ABSOLUTE AUTO 0.01 K/mm3 (0.00-0.68); EOSINOPHILS PERCENT AUTO 0 % (0-6); Hematocrit 35.2 % (37.0-53.0); Hemoglobin 11.7 g/dL (13.5-17.5); IMMATURE GRAN ABSOLUTE AUTO 0.07 K/mm3 (0.00-0.10); IMMATURE GRAN PERCENT AUTO 0 % (0-1); LYMPHOCYTES ABSOLUTE AUTO 0.89 K/mm3 (0.84-5.20); LYMPHOCYTES PERCENT AUTO 5 % (21-46); MONOCYTES ABSOLUTE AUTO 0.48 K/mm3 (0.16-1.47); MONOCYTES PERCENT AUTO 3 % (4-13); Mean Corpuscular HGB 31.1 pg (26.0-34.0); Mean Corpuscular HGB Conc 33.2 g/dL (31.5-36.5); Mean Platelet Volume 9.6 fL (9.1-12.4); NEUTROPHILS ABSOLUTE AUTO 15.18 K/mm3 (1.96-9.15); NEUTROPHILS PERCENT AUTO 91 % (41-73); Platelet Count 391 K/mm3 (150-400); RDW Coefficient Variation 12.4 % (11.7-14.2); Red Blood Cell Count 3.76 M/mm3 (4.30-5.90); White Blood Cell Count 16.68 K/mm3 (4.00-11.30)
[2019-07-07 02:24] LABS: Mean Corpuscular Volume 94 fL (80-100)
--- NOTE | 2019-07-07 04:37 | NUR ---
PT WAS FOUND TO BE ATTEMPTING OOB TO STAND WITH BED ALARM ON AND NOT ALARMING. PT RE-ADVISED NO OOB DUE TO NWB RLE AND ASSISTED BACK TO BED. PT NOT APPEARING TO UNDERSTAND WB RESTRICTIONS REGARDLESS OF FREQ REINSTRUCT. BENDING AT KNEE AND ATTEMPTING TO BEAR WEIGHT ON R FOOT EVEN WHILE IN BED AND REPOSITIONING. PT HAS BEEN INCONTINENET OF URINE, BUT BLADDER SCAN WAS ONLY [address] AWARE PT BP UP AND HEART RATE 120- 130. GAVE LOPRESSOR IV WITH HEART RATE RETURNING TO 107. SPOME WITH DR WILSON AND ADVISED OF INCREASE IN WBC,. HTN AND HEART RATE WITH MED GIVEN PER ORDER. F/U BP 157/86.TAB ALARM ON PT AND BED ALARM MOVED TO MORE SENSITIVE SETTING.
--- NOTE | 2019-07-07 07:04 | NUR ---
SUMMARY NO FURTHER ACUTE CHANGES.
--- NOTE | 2019-07-07 10:54 | NUR ---
PT TRANSPORTED TO XR AT ABOUT 1010
--- NOTE | 2019-07-07 16:47 | NUR ---
GI CONSULTED DURING NOC SHIFT- PT HAS YET TO BE SEEN BY DR. GOMEZ. DR. GOMEZ CALLED AT 1640 TO VERIFY CONSULT CALLED. DR. GOMEZ IS PLANNING TO SEE PT, REGAN FOLLOWING SCHEDULED PRECEDURES. PT STABLE AT THIS TIME AND DOES NOT HAVE ANY NAUSEA. WILL CTM PT STATUS.
--- NOTE | 2019-07-07 17:38 | NUR ---
07/07/19 1738 Selin Ramey DIS[address] WITH DR GOMEZ CONCERN FOR HX SLEEP APNEA. PROCEDURE TO BE DONE WITH DEEP SEDATION WITH PROPOFOL NURSE SEDATION PER DR GOMEZ.
--- NOTE | 2019-07-07 19:37 | NUR ---
EGD: PT LEFT UNIT FOR PROCEDURE AT ABOUT 1730. PT BACK TO ROOM AT ABOUT 1810, BEDSIDE REPORT RECIEVED FROM JOSHUA BRITO.
--- NOTE | 2019-07-07 19:40 | NUR ---
SUMMARY: PT IS POD 5 ANKLE REDUCTION AND EXTERNAL FIXATION. VSS, ORIENTED THIS AM, BUT HAD SOME CONFUSION THE DAY WENT ON, PT DID NOT ATTEMPT OOB. BED ALARM ON FOR SAFETY. DR. FITCH SAW PT FOR DRESSING CHANGE. WOUND VAC AND DRESSING WNL AT THIS TIME, CSM INTACT. PT WORKED WIHT PHYSICAL THERAPY, SEE NOTE. DR. GOMEZ TOOK PT TO PROCEDURE AT ABOUT 1730, PT NOW BACK IN ROOM, DROWSY, BUT AWAKENS TO VOICE. NO ACUTE CONCERNS AT THIS TIME. REPORT GIVEN TO ALISHA CORREA.
--- NOTE | 2019-07-08 05:59 | NUR ---
SHIFT SUMMARY: ALONZO IS TOLERATING SIPS OF WATER THROUGH THE NIGHT, NO SIGNS/SYMPTOMS OF CONTINUED GI BLEEDING. HE AROUSES EASILY AND RESPONDS APPROPRIATELY. HE STATES HIS PAIN IS 4/10 AT THIS TIME BUT DECLINES MEDICATION. WOUND VAC PATENT. HE IS LYING IN BED WITH HIS CALL LIGHT IN REACH. CONTINUOUS PULSE OX IN PLACE, MAINTAINING SATURATIONS ON ROOM AIR.
[2019-07-08 10:57] LABS: Hemoglobin 9.8 g/dL (13.5-17.5)
[2019-07-08 11:08] LABS: Anion Gap 6 mmol/L (6-16); Blood Urea Nitrogen 27 mg/dL (8-24); Bun/Creatinine Ratio 30.2 (12.0-20.0); CO2, Blood 25 mmol/L (21-32); Calcium, Blood 8.8 mg/dL (8.5-10.1); Chloride, Blood 111 mmol/L (98-108); Creatinine, Blood 0.89 mg/dL (0.60-1.20); Glomerular Filtration Rate >60 (60-); Glucose, Blood 188 mg/dL (70-99); Potassium, Blood 3.9 mmol/L (3.5-5.5); Sodium, Blood 142 mmol/L (136-145)
--- NOTE | 2019-07-08 17:28 | NUR ---
SHIFT SUMMARY PT A&OX3 THIS SHIFT, TELE AFIB PVCS # 71 BPM, RA, BIOX ON, CBGS CNI. POD4 I&D & EXT FIX W/WOUND VAC, SPLINT/WESLEY WRAP, NWB, ELEVATED ON 2 PILLOWS. POD1 EGD, RADHA CARD DIET, DENIES N&V. PAIN MANAGED PER EMAR. VOIDING WELL, USES URINAL. WILL REPORT TO ONCOMING NOC RN.
--- NOTE | 2019-07-09 07:19 | NUR ---
SHIFT SUMMARY PT RESTED WELL T/O NIGHT. AAOX4/DROWSY. PT REPORTED DISCOMFORT AT TOLERABLE LEVEL T/O NIGHT, NO NAUSEA/EMESIS. DRESSING WITH EXTERNAL HARDWARE TO RLE + WOUND VAC C/D/I. MOVES TOES WELL, CAP REFILL BRISK, PT REPORT NO CHANGE IN SENSATION BLE WITH HX OF NEUROPATHY. WOUND VAC WITH 200cc DRAINAGE OUT SINCE APPLICATION TO RLE. PT REPOSITIONED SELF IN BED WITH VERBAL ENCOURAGEMENT. PT RESTING AT THIS TIME WITH CALL LIGHT IN REACH. REPORT TO DAY SHIFT RN.
--- NOTE | 2019-07-09 14:53 | NUR ---
SHIFT SUMMARY PT A&OX3, VSS, RA, BIOX BEDSIDE, BEDREST, REPOSITIONED. NO INSULIN GIVEN TODAY GLUCOSE <100, TELE AFIB @ 65. POD5 I&D, EXT FIX WITH WOUND VAC, ELEVATED, WIGGLES TOES, GOOD CAP REFILL. POD2 EGD. RADHA CARDIAC DIET, LOW INTAKE; MAALOX GIVEN FOR HEARTBURN. DENIES N&V. ABD DISTENDED, ENULOSE GIVEN AGAIN TODAY; NO RESULTING BMS. VOIDING WELL USING URINAL. PAIN MANAGED PER EMAR. WILL REPORT TO ONCOMING NOC RN.
[2019-07-10 03:35] LABS: Hematocrit 29.8 % (37.0-53.0); Hemoglobin 9.3 g/dL (13.5-17.5); Mean Corpuscular HGB 30.5 pg (26.0-34.0); Mean Corpuscular HGB Conc 31.2 g/dL (31.5-36.5); Mean Platelet Volume 9.4 fL (9.1-12.4); Platelet Count 283 K/mm3 (150-400); RDW Coefficient Variation 12.4 % (11.7-14.2); RDW Standard Deviation 44.5 fL (35.1-46.3); Red Blood Cell Count 3.05 M/mm3 (4.30-5.90); White Blood Cell Count 9.56 K/mm3 (4.00-11.30)
[2019-07-10 03:36] LABS: Mean Corpuscular Volume 98 fL (80-100)
[2019-07-10 03:52] LABS: Anion Gap 5 mmol/L (6-16); Blood Urea Nitrogen 17 mg/dL (8-24); Bun/Creatinine Ratio 20.9 (12.0-20.0); CO2, Blood 26 mmol/L (21-32); Calcium, Blood 8.5 mg/dL (8.5-10.1); Chloride, Blood 111 mmol/L (98-108); Creatinine, Blood 0.82 mg/dL (0.60-1.20); Glomerular Filtration Rate >60 (60-); Glucose, Blood 132 mg/dL (70-99); Potassium, Blood 3.5 mmol/L (3.5-5.5); Sodium, Blood 142 mmol/L (136-145)
--- NOTE | 2019-07-10 05:07 | NUR ---
SUMMARY NO ACUTE CHANGES NOTED FROM ASSESSMENT. RIGHT LEG REMAINS ELEVATED, CIRC WNL, WOUND VAC IN PLACE, SUCTION INTACT. ABD REMAINS DISTENDED, PT DENIES NAUSEA, MEDIUM BROWN/LOOSE STOOL REPORTED BY SALESPERSON JEWELRY. PAIN MEDICATED X1. CALL LIGHT IN REACH.
--- NOTE | 2019-07-10 07:00 | NUR ---
recvd report from previous shift rn perez, pt sleeping in bed, bed in lowest position, bed rails up, call light within reach
--- NOTE | 2019-07-10 08:30 | NUR ---
sister visiting pt. dr richardson rounding on pt
--- NOTE | 2019-07-10 11:23 | NUR ---
physical therapy working with pt
--- NOTE | 2019-07-10 16:45 | NUR ---
PICC RN in placing PICC line
--- NOTE | 2019-07-10 19:27 | NUR ---
shift summary: vss, no acute changes, pt remained a/o x 4, pleasant/cooperative. pt tolerated ADA diet, bm x 1 loose brown stool, continent of bowel/bladder. pt worked with PT/OT this shift. pt states pain controlled per mar, rates pain at 5-6/10 prior to administraion of analgesia, rates pain at 3-5/10 upon reassessment. pt's sister visited x 3 this shift. Pt receive PICC line this shift LUE, double lumen. Dr Vazquez rounded this shift. Dr Durbin called to speak with pt's sister (medical POA) to discuss scheduled R BKA tomorrow day shift, anticipated to be performed by Dr Magallanes. this RN spoke with pt about this procedure. pt appears to accept this development with positive resignation. pt states to no n/v.
--- NOTE | 2019-07-11 05:16 | NUR ---
SHIFT SUMMARY PT NPO SINCE [place] FOR PLANNED R BKA. RLE IS CURRENTLY IN EXTERNAL FIXATION WITH WOUND VAC. TOES PINK, CAP REFILL <3. PT REPORTS CHRONIC NEUROPATHY TO BLE. RLE ELEVATED ON PILLOWS. PAIN WELL CONTROLLED TONIGHT WITH 5MG PO OXYCODONE ADMINISTERED ONCE. PT SLEPT WELL THROUGH THE NIGHT. WILL CONT TO MONITOR AND PROVIDE CARE UNTIL PRESUMED BY ONCOMIGN RN.
[2019-07-11 08:50] LABS: Hematocrit 28.4 % (37.0-53.0); Hemoglobin 9.2 g/dL (13.5-17.5)
[2019-07-11 09:11] LABS: Anion Gap 4 mmol/L (6-16); Blood Urea Nitrogen 15 mg/dL (8-24); Bun/Creatinine Ratio 19.9 (12.0-20.0); CO2, Blood 26 mmol/L (21-32); Calcium, Blood 8.4 mg/dL (8.5-10.1); Chloride, Blood 109 mmol/L (98-108); Creatinine, Blood 0.75 mg/dL (0.60-1.20); Glomerular Filtration Rate >60 (60-); Glucose, Blood 102 mg/dL (70-99); Potassium, Blood 3.7 mmol/L (3.5-5.5); Sodium, Blood 139 mmol/L (136-145)
--- NOTE | 2019-07-11 16:31 | NUR ---
Pt visit this afternoon. Pt resting in bed upon arrival. Pt reports 6/10 pain and just received pain medication. Discussed plan for amputation and Pt is agreeable. Pt appears withdrawn. Pt sister is at bedside. No concerns reported at this time. Spoke with bedside nurse Gerard and discussed case. Spoke with caremantristen Salamanca and discussed case. Palliative Care will F/U tomorrow for symptom management.
--- NOTE | 2019-07-11 17:01 | NUR ---
SHIFT SUMMARY PATIENT MEDICATED X1 FOR PAIN, DENIES NAUSEA AND SHORTNESS OF BREATH. PATIENT WORKED WITH OT TODAY. PATIENT STRICT NWB AND BEDREST. PATIENT NPO SINCE MIDNIGHT AND AWAITING SURGERY. FAMILY AT BEDSIDE, CALL LIGHT IN REACH.
--- NOTE | 2019-07-11 17:32 | NUR ---
BROUGHT TO [facility] TO WATCH PATIENT IN PACU TILL SURGERY TIME. ADMISSION TO UNIT STARTED
--- NOTE | 2019-07-11 21:35 | NUR ---
POST-OP NOTE: PT ARRIVED TO ICU RM 2 AT 2101. PT MOANING AND WITH GRIMACING. PT RATE PAIN 06/22. LS COARSE, PT C/ PRODUCTIVE COUGHT. SATS 94% ON 2L N/C. VSS. PT WITH AGNIESZKA WRAPPED R BKA STUMP, DRESSING DCI. STUMP ELEVATED ON PILLOW. CONSTAVAC WITH RED DRAINAG IN TUBING. PT WITH PICC TO AL LR ON SLOW gtt. PT MEDICATED WITH DILAUDID 0.5 mg IVP. PT HAD FAMILY TO BEDSIDE FOR A FEW MINUTES. WILL CONTINUE TO MONITOR.
--- NOTE | 2019-07-11 21:49 | NUR ---
REPORT TO ROBERT BRITO FOR SURGICAL FLOOR ROOM 208. ALL QUESTIONS ANSWERED. WILL TRANSFER PT TO ROOM 208.
--- NOTE | 2019-07-11 22:32 | NUR ---
ARRIVAL TO UNIT PT ARRIVED FROM ICU/PACU VIA BED. PATIENT IS ABLE TO ANSWER QUESTIONS, VERY SLOWLY AND SHORT ANSWERS. PATIENT UNABLE TO STATE LOCATION, WHAT HAPPENED, AND TIME. LAYING IN BED RESTING CURRENTLY. PT ASKING "WHAT HAPPENED" AND KEEPS REPEATING THAT "IT HURTS" PATIENT VERY LETHARGIC AND FALLING ASLEEP WHILE TALKING. STUMP SOCK IN PLACE CDI. MINIMAL SANGUINOUS DRAINAGE IN TUBE OF THE HEMOVAC. PATIENT IS ON 2L OF 02 VITAL SIGNS STABLE A-FIB AT 88 PER SOLDER DEPOSIT OPERATOR. CALL LIGHT IN REACH. WILL CONTINUE TO MONITOR PATIENT VITALS AND LEVELS OF PAIN.
[2019-07-11 22:39] LABS: Hematocrit 26.7 % (37.0-53.0); Hemoglobin 8.7 g/dL (13.5-17.5)
--- NOTE | 2019-07-11 23:10 | NUR ---
HAVE OFFERED ICE TO PATIENT DECLINES ICE CHIPS, PATIENT DECLINES REPOSITIONING. CURRENTLY SLEEPING IN BED.
--- NOTE | 2019-07-11 23:56 | NUR ---
PT TOLERATING PO FLUIDS. ABLE TO AWAKE AND ANSWER QUESTIONS APPROPRIATLY. STILL CONFUSED TO WHERE HE IS AND WHAT HAPPENED. PT C/O OF PAIN 04/22. GAVE PO PAIN MEDICATION. PATIENT TOLERATED WELL. CURRENTLY RESTING IN SEMI FOWLERS, LEGS ELEVATED ON PILLOWS, BED ALARM ON, CALL LIGHT IN REACH.
--- NOTE | 2019-07-12 05:08 | NUR ---
SHIFT SUMMARY POD1 R BKA PT IS NOW AA0X4 BUT STATES HE IS HAVING SOME CONFUSION. VSS. STUMP SOCK IN PLACE AND DRAIN HAD 20ML SANGUINOUS FLUID OUT. PATIENT IS TOLERATING PO FLUIDS AND FOOD WELL. PAIN MANAGED WITH NORCO 10MG X2 DURING SHIFT. DENIES NAUSEA. AFFECTED LEG ELEVATED ON TWO PILLOWS, PT HAS VOIDED. CALLING APPROPRIATLY. CALL LIGHT IN REACH. BED ALARM ON.
[2019-07-12 05:12] LABS: BASOPHILS ABSOLUTE AUTO 0.02 K/mm3 (0.00-0.23); BASOPHILS PERCENT AUTO 0 % (0-2); EOSINOPHILS ABSOLUTE AUTO 0.01 K/mm3 (0.00-0.68); EOSINOPHILS PERCENT AUTO 0 % (0-6); Hematocrit 23.2 % (37.0-53.0); Hemoglobin 7.5 g/dL (13.5-17.5); IMMATURE GRAN ABSOLUTE AUTO 0.05 K/mm3 (0.00-0.10); IMMATURE GRAN PERCENT AUTO 0 % (0-1); LYMPHOCYTES ABSOLUTE AUTO 1.52 K/mm3 (0.84-5.20); LYMPHOCYTES PERCENT AUTO 11 % (21-46); MONOCYTES ABSOLUTE AUTO 0.44 K/mm3 (0.16-1.47); MONOCYTES PERCENT AUTO 3 % (4-13); Mean Corpuscular HGB 30.5 pg (26.0-34.0); Mean Corpuscular HGB Conc 32.3 g/dL (31.5-36.5); Mean Platelet Volume 9.6 fL (9.1-12.4); NEUTROPHILS ABSOLUTE AUTO 11.59 K/mm3 (1.96-9.15); NEUTROPHILS PERCENT AUTO 85 % (41-73); Platelet Count 268 K/mm3 (150-400); RDW Coefficient Variation 12.7 % (11.7-14.2); RDW Standard Deviation 43.3 fL (35.1-46.3); Red Blood Cell Count 2.46 M/mm3 (4.30-5.90); White Blood Cell Count 13.63 K/mm3 (4.00-11.30)
[2019-07-12 05:13] LABS: Mean Corpuscular Volume 94 fL (80-100)
--- NOTE | 2019-07-12 06:20 | NUR ---
H&H MD NOTIFIED OF H&H LEVELS. ORDERS TO TRANSFUSE 1 UNIT PRBC GIVEN. AWAITING FINISH OF ABX TO ADMINISTER. PATIENT DENIES FEELING SOB, OR DIZZY. CURRENTLY RESTING IN BED.
--- NOTE | 2019-07-12 12:07 | NUR ---
Pt is resting in bed and reports 7/10 pain. He reports his pain is being managed with current regimen. Pt states he is feeling well. Pt request going to the [place] for [place]. Instructed Pt request will be relayed to caremanager. Pt reports no other concerns. Spoke with bedside nurse Katja and discussed case. Katja reports no concerns at this time. Palliative Care will remain available.
--- NOTE | 2019-07-12 18:10 | NUR ---
SUMMARY PATIENT REPORTS ADEQUATE PAIN CONTROL WITH PO MEDS. RIGHT STUMP ELEVATED ON PILLOWS THROUGHOUT SHIFT, STUMP SOCK WITHOUT VISIBLE DRAINAGE. RADHA PO FOOD AND FLUID WITHOUT NAUSEA.
--- NOTE | 2019-07-13 06:10 | NUR ---
SHIFT SUMMARY POD #2 S/P RIGHT BKA. A/OX4 W/IN BASELINE; NO ACUTE CHANGES. PT SLEEPING T/O MOST OF SHIFT W/CPAP. RIGHT STUMP DRESSING IN PLACE WITH NO DRAINAGE NOTED AND ELEVATED ON PILLOWS. LLE HAS PAS AND ALSO ELEVATED ON PILLOWS. MEDICATED ONCE FOR PAIN WITH 2 TABS. DECREASED REDNESS IN GROIN AREA NOTED. TOLERATING REG DIET AND REPORTS PASSING FLATUS. CALL LIGHT WITHIN REACH AND HAS DEMONSTRATED APPROPRIATE USE.
[2019-07-13 06:47] LABS: Hematocrit 25.7 % (37.0-53.0); Hemoglobin 8.2 g/dL (13.5-17.5)
--- NOTE | 2019-07-13 07:05 | NUR ---
recvd report from previous shift ALISHA Salamanca/Minerva. pt awake in bed, bed in lowest position, call light within reach, bed rails up x 2
--- NOTE | 2019-07-13 07:38 | NUR ---
This student nurse has permission to access patient information.
--- NOTE | 2019-07-13 11:46 | NUR ---
PT'S FRIEND VISITING
--- NOTE | 2019-07-13 11:46 | NUR ---
PHYSICAL THERAPY IN ROOM
--- NOTE | 2019-07-13 17:14 | NUR ---
shift summary: vss, no acute changes. pt remained a/o x 4, pleasant/cooperative. pt tolerating PO intake, voiding, BM x 1. pt states pain controlled per MAR. Pt worked with physical therapy/occupational therapy. Sister visited today, as well as a friend. pt will be transfered to [place] tomorrow.
--- NOTE | 2019-07-13 17:14 | NUR ---
dr jami rodgers on pt, assisted with dressing change
--- NOTE | 2019-07-14 04:10 | NUR ---
SHIFT SUMMARY POD #3 S/P RIGHT BKA. PT A&OX4 WITH NO ACUTE CHANGES DURING SHIFT. VSS AND PAIN MANAGED PER EMAR/REPOSITIONING. RLE STUMP SOCK C/D/I WITH NO DRAINAGE NOTED. BLE ELEVATED ON PILLOWS. LLE PAS IN PLACE. VOIDING WELL AND REPORTS BM TODAY. TOLERATING DIET. CALL LIGHT WITHIN REACH AND PT DEMONSTRATES APPROPRIATE USE. PLAN FOR SNF THIS MORNING AT 0830 TODAY.
--- NOTE | 2019-07-14 09:32 | NUR ---
REPORT GIVEN TO LINO BRITO AT [facility]. PT ALL PACKED UP INCLUDING HIS PERSONAL HOME CPAP MACHINE AND IS READY FOR TRANSPORT WHEN THEY ARRIVE.
--- NOTE | 2019-07-14 11:16 | NUR ---
TRANSPORT HERE TO TAKE PT TO [facility]. PT LEFT WITH ALL PERSONAL BELONGINGS INCLUDING HOME CPAP. PICC LINE REMOVED BY CHARGE NURSE. DISCHARGE PACKET INCLUDING HARD RX FOR [employer] SENT WITH [facility].
== END 2019-07-14 11:17 | DRG 474 ==
LOC: ER 14:17 → SURS 16:44
PROVIDERS: Emergency Medicine; Internal Medicine; Nurse Practitioner Acute Care; Orthopaedic Surgery; ADMIT Internal Medicine
PROC: 0QSG04Z Reposition Right Tibia with Internal Fixation Device, Open Approach (ICD-10-PCS; 2019-07-04)
PROC: 0DJ08ZZ Inspection of Upper Intestinal Tract, Via Natural or Artificial Opening Endoscopic (ICD-10-PCS; 2019-07-07)
PROC: 0Y6F0ZZ Detachment at Right Knee Region, Open Approach (ICD-10-PCS; principal; 2019-07-11 17:00)
PROC: 30233N1 Transfusion of Nonautologous Red Blood Cells into Peripheral Vein, Percutaneous Approach (ICD-10-PCS; 2019-07-12)
DX: S82.851A Displaced trimalleolar fracture of right lower leg, initial encounter for closed fracture (principal); K22.11 Ulcer of esophagus with bleeding; K26.4 Chronic or unspecified duodenal ulcer with hemorrhage; K25.4 Chronic or unspecified gastric ulcer with hemorrhage; I48.20 Chronic atrial fibrillation, unspecified; I50.32 Chronic diastolic (congestive) heart failure; D50.9 Iron deficiency anemia, unspecified; I25.10 Atherosclerotic heart disease of native coronary artery without angina pectoris; I11.0 Hypertensive heart disease with heart failure; Z95.1 Presence of aortocoronary bypass graft; E11.40 Type 2 diabetes mellitus with diabetic neuropathy, unspecified; Z79.4 Long term (current) use of insulin; E11.51 Type 2 diabetes mellitus with diabetic peripheral angiopathy without gangrene; F32.9 Major depressive disorder, single episode, unspecified; G47.33 Obstructive sleep apnea (adult) (pediatric); E66.9 Obesity, unspecified; Z79.01 Long term (current) use of anticoagulants; Z79.82 Long term (current) use of aspirin; I25.2 Old myocardial infarction
CPT/HCPCS: 36415; 36430; 36569; 71045; 73552; 73590; 73610; 74018; 80048; 80053; 80202; 82947; 83605; 83735; 85014; 85018; 85025; 85027; 86850; 86900; 86901; 86923; 87040; 87070; 87075; 87077; 87205; 94760; 94762; 96365; 97110; 97162; 97166; 97530; 97535; 99284-25; A9270; A9270-GY; C1713; C1751; C9113; J0690; J0696; J1100; J1170; J1650; J1815; J2370; J2405; J2704; J3010; J3370; J7030; J7040; J7050; J7120; P9016

== ENCOUNTER 2020-06-08 13:01 | Emergency (ER) | payer MEDICARE ==
[~2020-06-08] VITALS: Ht 190.5 cm; Wt 126.1 kg
[2020-06-08] MEDS ORDERED: Percocet 5-3251 EACH PO (13:54)
== END 2020-06-08 14:24 | disposition home or self-care (01) ==
LOC: ER 13:01
DX: M79.604 Pain in right leg (principal); Z89.511 Acquired absence of right leg below knee; I25.2 Old myocardial infarction; I25.10 Atherosclerotic heart disease of native coronary artery without angina pectoris; E11.40 Type 2 diabetes mellitus with diabetic neuropathy, unspecified; I48.20 Chronic atrial fibrillation, unspecified; I11.0 Hypertensive heart disease with heart failure; I50.32 Chronic diastolic (congestive) heart failure; F32.9 Major depressive disorder, single episode, unspecified; Z79.82 Long term (current) use of aspirin; Z79.899 Other long term (current) drug therapy; Z79.4 Long term (current) use of insulin; Z86.73 Personal history of transient ischemic attack (TIA), and cerebral infarction without residual deficits; W18.2XXA Fall in (into) shower or empty bathtub, initial encounter; Y93.89 Activity, other specified; Y92.002 Bathroom of unspecified non-institutional (private) residence as the place of occurrence of the external cause
CPT/HCPCS: 73560-RT; 96372; 99283-25; J1170

== ENCOUNTER 2020-07-14 11:53 | Emergency (ER) | payer OTHER, MEDICARE ==
[~2020-07-14] VITALS: Ht 190.5 cm; Wt 126.1 kg
[~2020-07-14 11:53] MED LIST changes: +Percocet 5-3251 EACH PO
== END 2020-07-14 14:02 | disposition home or self-care (01) ==
LOC: ER 11:53
DX: S00.03XA Contusion of scalp, initial encounter (principal); S40.011A Contusion of right shoulder, initial encounter; S70.01XA Contusion of right hip, initial encounter; I25.2 Old myocardial infarction; I11.0 Hypertensive heart disease with heart failure; E11.40 Type 2 diabetes mellitus with diabetic neuropathy, unspecified; I48.20 Chronic atrial fibrillation, unspecified; F32.9 Major depressive disorder, single episode, unspecified; F17.200 Nicotine dependence, unspecified, uncomplicated; Z79.899 Other long term (current) drug therapy; Z79.82 Long term (current) use of aspirin; Z79.02 Long term (current) use of antithrombotics/antiplatelets; Z79.4 Long term (current) use of insulin; Z95.1 Presence of aortocoronary bypass graft; Z95.0 Presence of cardiac pacemaker; W05.0XXA Fall from non-moving wheelchair, initial encounter
CPT/HCPCS: 70450; 73030; 73080; 73502; 99284-25; A9270-GY

== ENCOUNTER 2020-08-05 19:33 | Emergency (ER) | payer OTHER, MEDICARE ==
[~2020-08-05] VITALS: Ht 190.5 cm; Wt 122.9 kg
== END 2020-08-05 23:02 | disposition home or self-care (01) ==
LOC: ER 19:33
DX: S20.212A Contusion of left front wall of thorax, initial encounter (principal); Z79.82 Long term (current) use of aspirin; Z79.4 Long term (current) use of insulin; Z79.899 Other long term (current) drug therapy; W18.30XA Fall on same level, unspecified, initial encounter
CPT/HCPCS: 71046; 96372; 99283-25; J1885

== ENCOUNTER 2021-03-20 13:55 | Observation (INO) | payer OTHER, MEDICARE ==
[~2021-03-20] VITALS: Ht 190.5 cm; Wt 126.1 kg
[2021-03-20] MEDS ORDERED: OZEMPIC0.25 MG/0. SC (14:09)
[2021-03-20] MEDS ORDERED: BACL10 PO ×2 (14:10→17:01)
[2021-03-20] MEDS ORDERED: HUMULIN N100 UNIT/1 SC (14:11)
[2021-03-20] MEDS ORDERED: LOSA25 PO (14:12)
[2021-03-20] MEDS ORDERED: AGRYLIN0.5 M1 PO (14:12)
[2021-03-20 14:31] LABS: BASOPHILS ABSOLUTE AUTO 0.04 K/mm3 (0.00-0.23); BASOPHILS PERCENT AUTO 1 % (0-2); EOSINOPHILS ABSOLUTE AUTO 0.11 K/mm3 (0.00-0.68); EOSINOPHILS PERCENT AUTO 2 % (0-6); Hematocrit 37.3 % (37.0-53.0); IMMATURE GRAN ABSOLUTE AUTO 0.03 K/mm3 (0.00-0.10); IMMATURE GRAN PERCENT AUTO 0 % (0-1); LYMPHOCYTES PERCENT AUTO 21 % (21-46); MONOCYTES PERCENT AUTO 5 % (4-13); Mean Corpuscular HGB 31.2 pg (26.0-34.0); Mean Corpuscular HGB Conc 34.9 g/dL (31.5-36.5); Mean Corpuscular Volume 89 fL (80-100); Mean Platelet Volume 10.6 fL (9.1-12.4); NEUTROPHILS ABSOLUTE AUTO 5.29 K/mm3 (1.96-9.15); NEUTROPHILS PERCENT AUTO 71 % (41-73); Platelet Count 182 K/mm3 (150-400); RDW Coefficient Variation 14.6 % (11.7-14.2); RDW Standard Deviation 47.1 fL (35.1-46.3); Red Blood Cell Count 4.17 M/mm3 (4.30-5.90); White Blood Cell Count 7.47 K/mm3 (4.00-11.30)
[2021-03-20 14:54] LABS: Magnesium, Blood 1.9 mg/dL (1.6-2.4); Troponin I 0.029 ng/mL (0.000-0.040)
[2021-03-20 15:11] LABS: Alanine Aminotransfer (ALT/SGP 42 U/L (12-78); Albumin, Blood 3.4 g/dL (3.4-5.0); Albumin/Globulin Ratio 0.8 (0.8-1.8); Alk Phos 73 U/L (50-136); Anion Gap 9 mmol/L (6-16); Aspartate Aminotrans (AST/SGOT 31 U/L (12-37); Bilirubin, Total 0.5 mg/dL (0.1-1.0); Blood Urea Nitrogen 15 mg/dL (8-24); Bun/Creatinine Ratio 17.1 (12.0-20.0); CO2, Blood 23 mmol/L (21-32); Calcium, Blood 7.7 mg/dL (8.5-10.1); Chloride, Blood 105 mmol/L (98-108); Creatinine, Blood 0.88 mg/dL (0.60-1.20); Glomerular Filtration Rate >60 (60-); Glucose, Blood 376 mg/dL (70-99); Potassium, Blood 3.6 mmol/L (3.5-5.5); Sodium, Blood 137 mmol/L (136-145); Total Protein, Blood 7.4 g/dL (6.4-8.2)
[2021-03-20 15:49] LABS: International Normalized Ratio 0.9; Prothrombin Time Results 9.8 Sec (9.7-11.5)
[2021-03-20] MEDS ORDERED: ELIQUIS5 M2 PO (16:59)
[2021-03-20] MEDS ORDERED: VITAMIN D31000 UNI1 PO (17:01)
[2021-03-20] MEDS ORDERED: DOCU100 PO (17:01)
[2021-03-20] MEDS ORDERED: JARDIANCE25 MG PO ×2 (17:02→18:49)
[2021-03-20] MEDS ORDERED: NOVOLIN 70100 UNIT/4 SC (18:48)
[2021-03-20] MEDS ORDERED: OZEMPIC1 MG/0.72 SC (18:48)
[2021-03-20] MEDS ORDERED: POTA10T PO (18:48)
[2021-03-20] MEDS ORDERED: MAGNESIUM OXID500 MG PO (18:49)
[2021-03-20] MEDS ORDERED: ASCO500 PO (18:49)
[2021-03-20] MEDS ORDERED: Zocor40 MG PO (18:50)
[2021-03-20] MEDS ORDERED: GABA300 PO ×2 (18:50)
[2021-03-20] MEDS ORDERED: LOSARTAN POTAS100 M1 PO (18:50)
[2021-03-20] MEDS ORDERED: FURO40 PO (18:51)
[2021-03-20] MEDS ORDERED: SERT100 PO (18:51)
[2021-03-20] MEDS ORDERED: MELA3 PO (18:51)
[2021-03-20] MEDS ORDERED: GLUCOPHAGE1000 M5 PO (18:52)
[2021-03-20] MEDS ORDERED: OMEP20ER PO (18:52)
[2021-03-20] MEDS ORDERED: FISH OIL PO (20:22)
[2021-03-20] MEDS ORDERED: LIDO700A20 TOP (20:23)
[2021-03-20] MEDS ORDERED: METO25ER PO (20:24)
--- NOTE | 2021-03-21 15:03 | NUR ---
MICONAZOLE Skin assessment reveals redness in groin, abdominal folds, and bilateral arm pits. Received V.O. from Dr. Vazquez for Miconazole powder BID prn. EMAR updated.
--- NOTE | 2021-03-21 15:15 | NUR ---
RECHECK TROPONIN RECEIVED V.O. FROM DR. VAUGHAN TO REDRAW TROPONIN. ORDER UPDATED.
[2021-03-21] MEDS ORDERED: ASPI81CH PO (17:19)
[2021-03-21] MEDS ORDERED: ANTIFUNGAL POWD71 GM TOP (17:23)
--- NOTE | 2021-03-21 17:51 | NUR ---
Discharge Summary A/Ox4, pleasant/cooperative. Denies any chest discomfort/pain. Uses urinal independently. Discharging to home. Reviewed d/c paperwork. Patient refused to get script filled (Miconazole) so meds not faxed. States has a purple top all natural lotion he uses at home for his yeast infection. Copies of d/c paper given. Assisted patient with putting on prosthesis and gathering CPAP/personal belongings to go home. Escorted self via motorized w/c, declined staff walk out with patient. Refused blood sugar check, insulin, and dinner here. States will eat dinner at home. Self transport home via motorized w/c.
== END 2021-03-21 17:43 | disposition home or self-care (01) ==
LOC: ER 13:55 → MEDS 13:56
PROVIDERS: Student in an Organized Health Care Education/Training Program; ADMIT Internal Medicine
DX: I25.10 Atherosclerotic heart disease of native coronary artery without angina pectoris (principal); I25.2 Old myocardial infarction; I11.0 Hypertensive heart disease with heart failure; I50.32 Chronic diastolic (congestive) heart failure; F17.210 Nicotine dependence, cigarettes, uncomplicated; E66.9 Obesity, unspecified; Z68.34 Body mass index [BMI] 34.0-34.9, adult; E11.40 Type 2 diabetes mellitus with diabetic neuropathy, unspecified; G47.33 Obstructive sleep apnea (adult) (pediatric); I48.20 Chronic atrial fibrillation, unspecified; R79.89 Other specified abnormal findings of blood chemistry; I07.1 Rheumatic tricuspid insufficiency; I37.1 Nonrheumatic pulmonary valve insufficiency; Z95.1 Presence of aortocoronary bypass graft; Z95.5 Presence of coronary angioplasty implant and graft; Z95.0 Presence of cardiac pacemaker; Z89.511 Acquired absence of right leg below knee; Z79.4 Long term (current) use of insulin; Z79.01 Long term (current) use of anticoagulants; Z66 Do not resuscitate; Z86.73 Personal history of transient ischemic attack (TIA), and cerebral infarction without residual deficits
CPT/HCPCS: 36415; 71045; 80053; 82947; 83036; 83735; 83880; 84484; 85025; 85610; 85730; 93005; 93010; 93306; 94762; 99285-25; A9270; G0378; J1815

== ENCOUNTER 2021-05-04 10:06 | Emergency (ER) | payer OTHER ==
[~2021-05-04] VITALS: Ht 190.5 cm; Wt 117.9 kg
[~2021-05-04 10:06] MED LIST changes: +AGRYLIN0.5 M1 PO; +ANTIFUNGAL POWD71 GM TOP; +ASPI81CH PO; +BACL10 PO; +ELIQUIS5 M2 PO; +FISH OIL PO; +GLUCOPHAGE1000 M5 PO; +HUMULIN N100 UNIT/1 SC; +JARDIANCE25 MG PO; +LIDO700A20 TOP; +LOSA25 PO; +LOSARTAN POTAS100 M1 PO; +MAGNESIUM OXID500 MG PO; +NOVOLIN 70100 UNIT/4 SC; +OMEP20ER PO; +OZEMPIC0.25 MG/0. SC; +OZEMPIC1 MG/0.72 SC; +POTA10T PO; +VITAMIN D31000 UNI1 PO; +Zocor40 MG PO
[2021-05-04] MEDS ORDERED: BENZ100A PO (11:14)
[2021-05-04] MEDS ORDERED: Acetaminophen500 MG PO (11:14)
== END 2021-05-04 13:37 | disposition home or self-care (01) ==
LOC: ER 10:06
DX: U07.1 COVID-19 (principal); M54.2 Cervicalgia; F17.210 Nicotine dependence, cigarettes, uncomplicated; E11.9 Type 2 diabetes mellitus without complications; I25.10 Atherosclerotic heart disease of native coronary artery without angina pectoris; I11.0 Hypertensive heart disease with heart failure; I50.32 Chronic diastolic (congestive) heart failure; Z79.01 Long term (current) use of anticoagulants; Z79.899 Other long term (current) drug therapy; Z79.4 Long term (current) use of insulin; Z79.82 Long term (current) use of aspirin; Z95.1 Presence of aortocoronary bypass graft; Z95.0 Presence of cardiac pacemaker
CPT/HCPCS: 99284-25; A9270; M0243; Q0243

== ENCOUNTER 2021-08-27 12:40 | Emergency (ER) | payer OTHER ==
[~2021-08-27] VITALS: Ht 190.5 cm; Wt 117.0 kg
[~2021-08-27 12:40] MED LIST changes: +Acetaminophen500 MG PO; +BENZ100A PO
== END 2021-08-27 13:52 | disposition home or self-care (01) ==
LOC: ER 12:40
DX: M70.71 Other bursitis of hip, right hip (principal); E11.9 Type 2 diabetes mellitus without complications; I10 Essential (primary) hypertension; I25.2 Old myocardial infarction; Z79.899 Other long term (current) drug therapy; F17.210 Nicotine dependence, cigarettes, uncomplicated
CPT/HCPCS: 73502; 96372; 99283-25; J1885

== ENCOUNTER 2021-12-04 20:35 | Emergency (ER) | payer OTHER ==
[~2021-12-04] VITALS: Ht 190.5 cm; Wt 117.0 kg
== END 2021-12-05 00:32 | disposition home or self-care (01) ==
LOC: ER 20:35
DX: L02.31 Cutaneous abscess of buttock (principal); E11.9 Type 2 diabetes mellitus without complications; I11.0 Hypertensive heart disease with heart failure; I25.2 Old myocardial infarction; I50.32 Chronic diastolic (congestive) heart failure; F17.210 Nicotine dependence, cigarettes, uncomplicated; Z79.899 Other long term (current) drug therapy
CPT/HCPCS: 10061; 99283-25

== ENCOUNTER 2022-01-05 06:06 | Observation (INO) | payer OTHER ==
[~2022-01-05] VITALS: Ht 190.5 cm; Wt 120.1 kg
[~2022-01-05 06:06] MED LIST changes: +MULVITA PO; +Norco 10-325 T1 EACH PO
--- NOTE | 2022-01-05 07:49 | NUR ---
History, Chart, Medications and Allergies reviewed before start of procedure. Patient confirms NPO status and agrees with scheduled surgery. Lungs clear T/O to Auscultation. Prosthetic leg removed by patient and stored under gurney.
--- NOTE | 2022-01-05 15:15 | NUR ---
SITZ BATH COMPLETE
--- NOTE | 2022-01-05 16:31 | NUR ---
SHIFT SUMMARY PT IS POD#0 FROM A FISTULOTOMY. PAIN MANAGED WITH PO PAIN MEDICATION. PT WAS ABLE TO GET OOB USING HIS PRESTHESIS AND A WALKER. PT HAS DONE A SITZ BATH X1. TOLERATING PO. PLAN FOR DISCHARGE TOMORROW. WILL MONITOR UNTIL REPORT TO MANUEL BRITO.
--- NOTE | 2022-01-06 04:26 | NUR ---
2200 SITZ BATHS COMPLETED.
--- NOTE | 2022-01-06 05:02 | NUR ---
SHIFT SUMMARY POD1 FISTULOTOMY. PT REPORTS MODERATE ANAL PAIN, PAIN MANAGED WITH NORCO. SURGICAL SITE WITH SEROSANG MILD DRAINAGE. ATTENDS IN PLACE. SITZ BATH DONE X1 LAST NIGHT. TOLERATING PO INTAKE DENIE N/V. AMBULATES WITH FWW AND R KNEE PROSTETIC, SBA. CALL LIGHT WITHIN REACH. WILL PROIVDE REPORT TO ONCOMING NURSE. PLAN FOR DC TODAY.
--- NOTE | 2022-01-06 14:18 | NUR ---
DISCHARGE PT PROVIDED WITH WRITTEN AND VERBAL DISCHARGE INSTRUCTIONS; HE REPORTED UNDERSTANDING. PT SENT HOME WITH ATTENDS AND TIFFANIE PADS TO ABSORB DRAINAGE FROM WOUND SITE. PT MEETING ALL GOALS AND PAIN MANAGED AT TIME OF DISCHARGE. PT DISCHARGED AT 1410 AMD ASSISTED OUT IN A WHEELCHAIR.
== END 2022-01-06 14:00 | disposition home or self-care (01) ==
LOC: ORSCMMR 06:06 → ORD 07:30 → ORSCMMR 07:30 → SURS 08:49 → ORSCMMR 08:49 → SURS 08:49
PROVIDERS: ADMIT Surgery
DX: K60.3 Anal fistula (principal); I48.91 Unspecified atrial fibrillation; I25.10 Atherosclerotic heart disease of native coronary artery without angina pectoris; K21.9 Gastro-esophageal reflux disease without esophagitis; I11.0 Hypertensive heart disease with heart failure; I50.9 Heart failure, unspecified; E78.5 Hyperlipidemia, unspecified; E11.40 Type 2 diabetes mellitus with diabetic neuropathy, unspecified; Z79.01 Long term (current) use of anticoagulants; Z79.4 Long term (current) use of insulin; Z79.899 Other long term (current) drug therapy
CPT/HCPCS: 82947; 94660; 94762; A9270; G0378; J1100; J1650; J1815; J1885; J2250; J2405; J2704; J3010; J7120

== ENCOUNTER 2022-10-03 20:24 | Emergency (ER) | payer OTHER ==
[~2022-10-03] VITALS: Ht 190.5 cm; Wt 113.4 kg
[2022-10-03 21:41] LABS: BASOPHILS ABSOLUTE AUTO 0.04 K/mm3 (0.00-0.23); BASOPHILS PERCENT AUTO 1 % (0-2); EOSINOPHILS ABSOLUTE AUTO 0.22 K/mm3 (0.00-0.68); EOSINOPHILS PERCENT AUTO 3 % (0-6); Hematocrit 43.2 % (37.0-53.0); Hemoglobin 14.7 g/dL (13.5-17.5); IMMATURE GRAN ABSOLUTE AUTO 0.02 K/mm3 (0.00-0.10); IMMATURE GRAN PERCENT AUTO 0 % (0-1); LYMPHOCYTES ABSOLUTE AUTO 2.42 K/mm3 (0.84-5.20); LYMPHOCYTES PERCENT AUTO 28 % (21-46); MONOCYTES ABSOLUTE AUTO 0.38 K/mm3 (0.16-1.47); MONOCYTES PERCENT AUTO 4 % (4-13); Mean Corpuscular HGB 30.8 pg (26.0-34.0); Mean Corpuscular Volume 91 fL (80-100); NEUTROPHILS PERCENT AUTO 65 % (41-73); RDW Coefficient Variation 13.1 % (11.7-14.2); RDW Standard Deviation 43.8 fL (35.1-46.3); Red Blood Cell Count 4.77 M/mm3 (4.30-5.90); White Blood Cell Count 8.68 K/mm3 (4.00-11.30)
[2022-10-03 21:47] LABS: Mean Platelet Volume 10.1 fL (9.1-12.4); Platelet Count 207 K/mm3 (150-400)
[2022-10-03 21:52] LABS: Albumin, Blood 3.7 g/dL (3.4-5.0); Albumin/Globulin Ratio 0.8 (0.8-1.8); Bilirubin, Total 0.4 mg/dL (0.1-1.0); Bun/Creatinine Ratio 20.5 (12.0-20.0); Calcium, Blood 9.4 mg/dL (8.5-10.1); Creatinine, Blood 0.68 mg/dL (0.60-1.20); Globulin, Blood 4.5 g/dL (2.2-4.0); Potassium, Blood 3.7 mmol/L (3.5-5.5); Total Protein, Blood 8.2 g/dL (6.4-8.2)
[2022-10-03 22:37] LABS: Source, Urine Clean Catch
[2022-10-03 22:41] LABS: Bilirubin, Urine Neg (Neg); Blood, Urine Neg (Neg); Glucose Qualitative, Urine 4+ (Neg); Ketones, Urine Neg (Neg); Leukocyte Esterase, Urine Neg (Neg); Nitrite, Urine Neg (Neg); Protein, Urine Neg (Neg); Urobilinogen, Urine NORM (Normal); pH, Urine 6.5 (5.0-8.0)
[2022-10-03 22:49] LABS: Appearance, Urine Clear (Clear); Color, Urine Yellow (P-Yellow)
[2022-10-03] MEDS ORDERED: Magic Bullet10 MG PR (23:05)
[2022-10-03] MEDS ORDERED: LAVAP4L PO (23:05)
== END 2022-10-03 23:50 | disposition home or self-care (01) ==
LOC: ER 20:24
PROVIDERS: Student in an Organized Health Care Education/Training Program
DX: K59.00 Constipation, unspecified (principal); I25.10 Atherosclerotic heart disease of native coronary artery without angina pectoris; E11.40 Type 2 diabetes mellitus with diabetic neuropathy, unspecified; I11.0 Hypertensive heart disease with heart failure; I50.32 Chronic diastolic (congestive) heart failure; I48.20 Chronic atrial fibrillation, unspecified; F17.210 Nicotine dependence, cigarettes, uncomplicated; Z79.899 Other long term (current) drug therapy; Z79.01 Long term (current) use of anticoagulants; Z79.4 Long term (current) use of insulin
CPT/HCPCS: 36415; 74019; 80053; 81003; 83690; 85025; 93005; 93010